=== PATIENT | male | born 1975 | race Caucasian/White ===

== ENCOUNTER 2018-09-06 09:58 | Emergency (ER) | payer MEDICAID ==
[2018-09-06] MEDS ORDERED: IPRATROPIUM/ALBUTEROL (0.5MG/3MG) NEB INH ONE (10:13)
[2018-09-06] MEDS ORDERED: METHYLPREDNISOLONE PF 125MG/VIAL IVP ONE (10:13)
--- NOTE | 2018-09-06 10:14 | Emergency Department Record ---
History of Present Illness - General Chief Complaint: Chest Pain Stated Complaint: CHEST PAIN,SOB Time Seen by Provider: 09/06/18 10:06 Source: Patient, Family Mode of Arrival: Ambulatory Limitations: No limitations - History of Present Illness Initial Comments: 43 yo male presents not feeling well for nearly two weeks. He has had cough, subjective fever, chills, sputum production, body aches. He has has shoulder pain on the left and pains in the chest with breathing and coughing. He lays carpet for a living and has noted pain with work in the left shoulder as it is a physical job with pushing and lifting. The sputum is thick and whitish without blood. He is a smoker. He drinks 2 - several beers a day. He denies any prior lung disease history but has been a termite treater smoker. He did not have a flu shot. It hurts to cough or breath in the chest. No leg swelling. He does not see a PCP. No diarrhea. MD Complaint: Chest pain, Other Onset/Timin -: Week(s) Onset: Other (with cough for the last two weeks) Pain Location: Left chest Pain Radiation: LUE Severity: Moderate Severity scale (1-10): 6 Quality: Aching Consistency: Constant Improves With: Nothing Worsens With: Nothing, Inspiration, Movement Context: Recent illness Anginal Symptoms: Vomiting Other Symptoms: Cough, Fever Treatments Prior to Arrival: None - Related Data Previous Rx's Medication Instructions Recorded Albuterol Sulfate [Proair Hfa] 1 - 2 puff IH .EVERY 4-6 HOURS PRN 09/06/18 #1 inhaler Azithromycin [Zithromax] 250 mg PO DAILY #4 tab 09/06/18 Prednisone [Prednisone 20Mg] 20 mg PO BID #10 tab 09/06/18 Allergies Allergy/AdvReac Type Severity Reaction Status Date / Time No Known Drug Allergies Allergy Verified 09/06/18 10:00 Travel Screening - Travel/Exposure Within Last 30 Days Have you traveled within the last 30 days?: No Review of Systems Constitutional: Reports: Chills, Fever, Malaise, Weakness Eyes: Denies: Eye discharge, Eye pain, Photophobia, Vision change ENT: Reports: Congestion. Denies: Throat pain Respiratory: Reports: Cough, Dyspnea, Wheezes (wheeze throughout both lungs diffusely). Denies: Hemoptysis Cardiovascular: Reports: Chest pain, Dyspnea on exertion. Denies: Edema, Palpitations, Syncope Endocrine: Denies: Fatigue, Polydipsia, Polyuria Gastrointestinal: Reports: Nausea, Vomiting (with coughing episodes). Denies: Abdominal pain, Diarrhea, Hematemesis Genitourinary: Denies: Dysuria, Frequency Musculoskeletal: Reports: Arthralgia, Back pain, Myalgia. Denies: Neck pain Skin: Denies: Bruising, Change in color, Rash Neurological: Denies: Headache, Numbness, Weakness Psychiatric: Denies: Anxiety Hematological/Lymphatic: Denies: Blood Clots, Easy bleeding, Easy bruising, Swollen glands Past Medical History - SOCIAL HISTORY Smoking Status: Current every day smoker Alcohol Use: Heavy Alcohol Use Comment: "COUPLE TO A LOT BBER/DAY" Drug Use: Occasional Drug Use Detail:: Marijuana - RESPIRATORY Hx Respiratory Disorders: No - CARDIOVASCULAR Hx Cardio Disorders: No - NEURO Hx Neuro Disorders: No - GI Hx GI Disorders: No - Hx Genitourinary Disorders: No - ENDOCRINE Hx Endocrine Disorders: No Hx Diabetes: No Hx Thyroid Disease: No - MUSCULOSKELETAL Hx Musculoskeletal Disorders: No - PSYCH Hx Psych Problems: No - HEMATOLOGY/ONCOLOGY Hx Hematology/Oncology Disorders: No Family Medical History Any Significant Family History?: No Physical Exam - General General Appearance: Alert, Oriented x3, Cooperative, No acute distress - Head Head exam: Atraumatic, Normocephalic, Normal inspection - Eye Eye exam: Normal appearance, PERRL. negative: Conjunctival injection, Scleral icterus - ENT ENT exam: Normal exam, Mucous membranes moist Ear exam: Normal external inspection Nasal Exam: Discharge Mouth exam: Normal external inspection Teeth exam: Normal inspection Throat exam: Tonsillar erythema. negative: Tonsillomegaly, Tonsillar exudate, R peritonsillar mass, L peritonsillar mass - Neck Neck exam: Normal inspection, Full ROM. negative: Lymphadenopathy, Tenderness - Respiratory Respiratory exam: Chest wall tenderness, Decreased breath sounds, Prolonged expiratory, Rhonchi, Wheezes (bilateral diffuse wheezing). negative: Normal lung sounds bilaterally, Accessory muscle use, Rales - Cardiovascular Cardiovascular Exam: Regular rate, Normal rhythm, Normal heart sounds Peripheral Pulses: 2+: Radial (R), Radial (L) - GI/Abdominal GI/Abdominal exam: Soft. negative: Tenderness - Rectal Rectal exam: Deferred - exam: Deferred - Extremities Extremities exam: Normal inspection, Tenderness (left anterior shoulder tenderness). negative: Calf tenderness, Pedal edema Image of Full Body: 1 - tenderness anterior shoulder and scapular, no warmth or swelling 2 - tenderness anterior chest, this is the location that hurts with cough/ breathing - Back Back exam: Denies: CVA tenderness (R), CVA tenderness (L) - Neurological Neurological exam: Alert, Oriented X3. negative: Altered, Motor sensory deficit - Psychiatric Psychiatric exam: Normal affect, Normal mood. negative: Agitated, Anxious - Skin Skin exam: Dry, Intact, Normal color, Warm Course Vital Signs 09/06/18 10:02 Temperature 98.0 F Pulse Rate 98 H Respiratory 18 Rate Blood Pressure 155/95 Pulse Ox 98 - Reevaluation(s) Reevaluation #1: EKG 10:02 Sinus rhythm rate 100, intervals normal, axis normal, ST normal. 09/06/18 10:06 09/06/18 10:53 The CBC was reviewed. No acute changes The Troponin is normal The D-Dimer is normal The CMP demonstrated an AG of 25, HCO3 of 21, K of 4.4, CR of 0.8, AST of 121, Glucose of 60 09/06/18 12:01 The chest XR was normal without infiltrate. Normal heart size, No effusion or PVC. 09/06/18 12:07 The patient is eating and starting to feel improved Given his fever and chills with productive cough he will be given PO antibiotics as well. 09/06/18 12:24 The patient is doing much better eating lunch He still has mild wheeze but much improved. RT contacted to teach and dispense an inhaler with spacer 09/06/18 12:32 Repeat vitals reviewed. No significant abnormalities. 09/06/18 13:11 HEART Score is Low risk for discharge IV fluids are finished. He is feeling much better RT has completed teach and dispense. I answered questions, he knows to return if short of breath, not eating, questions with his medications or any concerns 09/06/18 14:32 Medical Decision Making - Lab Data Result diagrams: 09/06/18 10:10 09/06/18 10:10 Disposition Disposition: Discharge Clinical Impression: Shoulder pain, Cough, Atypical chest pain, Bronchitis Disposition: Home, Self-Care Condition: (1) Good Instructions: Acute Bronchitis (ED) Additional Instructions: [facility] for a new family doctor Take the medications as directed the next week Use the inhaler with spacer every 4 hours if wheezing Return immediately if fever, chills, vomiting, not eating, short or breath or any concerns Prescriptions: Albuterol Sulfate [Proair Hfa] 1 - 2 puff IH .EVERY 4-6 HOURS PRN #1 inhaler PRN Reason: Difficulty In Breathing Azithromycin [Zithromax] 250 mg PO DAILY #4 tab Prednisone [Prednisone 20Mg] 20 mg PO BID #10 tab Referrals: ADAN ELLIS [MEDICAL DOCTOR] - Forms: Patient Portal Access Time of Disposition: 13:16 Quality - Quality Measures Quality Measures: N/A - Blood Pressure Screening Does Patient Have Any of the Following: No Blood Pressure Classification: Hypertensive Reading Systolic Measurement: 148 Diastolic Measurement: 68 Screening for High Blood Pressure: < Pre-Hypertensive BP, F/U Documented > [ G8950] Pre-Hypertensive Follow-up Interventions: Referral to alternative/primary care provider.
[2018-09-06 10:23] LABS: BASO % 0.8 % (0-6); GRAN % 65.4 % (47-80); HEMOGLOBIN 16.6 gm/dl (14.0-18.0); LYMPH % 24.9 % (16-45); MEAN CELL VOLUME 96.7 fl (81-97); MEAN CORPUSCULAR HEMOGLOBIN 34.2 pg (27-33); MEAN CORPUSCULAR HGB CONC 35.3 g/dl (32-36); MEAN PLATELET VOLUME 9.4 fl (7.4-10.4); MONO % 7.9 % (0-9); PLATELET COUNT 226 K/uL (130-400); RED BLOOD COUNT 4.86 M/uL (4.40-5.70); RED CELL DISTRIBUTION WIDTH 12.3 % (11.5-14.5); WHITE BLOOD COUNT W/O DIFF 6.2 K/uL (4.2-12.2)
[2018-09-06] MEDS ORDERED: 0.9 % SODIUM CHLORIDE 1,000 ML BAG IV ONE (10:25)
[2018-09-06 10:34] LABS: INFLUENZA A NEGATIVE (NEGATIVE); INFLUENZA B NEGATIVE (NEGATIVE)
[2018-09-06 10:37] LABS: BLOOD UREA NITROGEN 5 mg/dL (6-20); CREATININE 0.8 mg/dL (0.7-1.2); EST GLOMERULAR FILTRATION RATE > 60 mL/min; TOTAL PROTEIN 7.7 g/dL (6.6-8.7)
[2018-09-06 10:39] LABS: GLUCOSE,RANDOM 60 mg/dL (74-109)
[2018-09-06 10:42] LABS: ALB/GLOB RATIO 1.9 (1.1-1.8); ALKALINE PHOSPHATASE 50 U/L (40-129); ALT/SGPT 75 U/L (<41); AST/SGOT 121 U/L (10.0-50.0)
[2018-09-06] MEDS ORDERED: AZITHROMYCIN 500 MG TABLET PO ONE (12:07)
[2018-09-06] MEDS ORDERED: ALBUTEROL HFA 8 GM INHALER INH ONE (12:22)
--- NOTE | 2018-09-08 21:36 | RADIOLOGY REPORT ---
EXAM: CHEST 2 VIEWS HISTORY: FEVER AND COUGH. TECHNIQUE: Two views of the chest. COMPARISON: Acute abdominal series with chest radiograph 10/01/2010. FINDINGS: Cardiac silhouette within normal size limits. Thoracic aortic calcifications. Pulmonary vasculature is nondilated. No focal pulmonary consolidation. No pleural effusion or pneumothorax. IMPRESSION: NO ACUTE LUNG FINDINGS. JOB NUMBER: [id number] MTDD
== END 2018-09-06 13:31 | disposition home or self-care (01) ==
LOC: ER 09:58
DX: J20.9 Acute bronchitis, unspecified (principal); M25.512 Pain in left shoulder; R07.89 Other chest pain; R06.02 Shortness of breath; F17.210 Nicotine dependence, cigarettes, uncomplicated
CPT/HCPCS: 36416; 71046; 80053; 82948; 84484; 85025; 85379; 87400; 93005; 93010; 94640; 94664; 96374; 99284; J2930; J7030

== ENCOUNTER 2019-08-20 09:25 | Emergency (ER) | payer MEDICAID ==
--- NOTE | 2019-08-20 09:36 | Emergency Department Record ---
History of Present Illness - General Chief complaint: Abscess Stated complaint: Abscess Time Seen by Provider: 08/20/19 09:27 Source: Patient Mode of Arrival: Ambulatory Limitations: No limitations - History of Present Illness Initial comments: 43 yo male presents with a recurrent area of pain and swelling on the left buttocks. It is not draining at this point. He states this is the 5th time over several years. No fever. It is lateral to the anus. No fever. MD complaint: Abscess/boil Location: Buttocks Severity: Moderate Quality: Aching Consistency: Constant Improves with: None Worsens with: Palpation Context: Other (recurrent abscess) Treatments Prior to Arrival: None - Related Data Previous Rx's Medication Instructions Recorded Albuterol Sulfate [Proair Hfa] 1 - 2 puff IH .EVERY 4-6 HOURS PRN 09/06/18 #1 inhaler Cephalexin [Keflex] 500 mg PO TID #21 cap 08/20/19 Hydrocodone/APAP 5/325Mg [Mayer 1 each PO Q6H #12 tab 08/20/19 5Mg/325Mg] Sulfamethoxazole/Trimethoprim 1 each PO BID #14 tablet 08/20/19 [Bactrim Ds Tablet] Allergies Allergy/AdvReac Type Severity Reaction Status Date / Time No Known Drug Allergies Allergy Verified 08/20/19 09:36 Review of Systems Constitutional: Denies: Chills, Fever, Malaise, Weakness Eyes: Denies: Eye discharge ENT: Denies: Congestion, Throat pain Respiratory: Denies: Cough, Dyspnea Cardiovascular: Denies: Chest pain Endocrine: Denies: Fatigue Gastrointestinal: Denies: Diarrhea, Nausea, Vomiting Genitourinary: Denies: Dysuria, Frequency, Hematuria Musculoskeletal: Denies: Arthralgia, Back pain, Neck pain Skin: Reports: Other (abscess). Denies: Bruising, Change in color Neurological: Denies: Headache Psychiatric: Denies: Anxiety Hematological/Lymphatic: Denies: Easy bleeding, Easy bruising Past Medical History - SOCIAL HISTORY Smoking Status: Current every day smoker Alcohol Use Comment: "COUPLE TO A LOT BBER/DAY" Drug Use: Occasional Drug Use Detail:: Marijuana - RESPIRATORY Hx Respiratory Disorders: No - CARDIOVASCULAR Hx Cardio Disorders: No - NEURO Hx Neuro Disorders: No - GI Hx GI Disorders: No - Hx Genitourinary Disorders: No - ENDOCRINE Hx Endocrine Disorders: No Hx Diabetes: No Hx Thyroid Disease: No - MUSCULOSKELETAL Hx Musculoskeletal Disorders: No - PSYCH Hx Psych Problems: No - HEMATOLOGY/ONCOLOGY Hx Hematology/Oncology Disorders: No Physical Exam - General General Appearance: Alert, Oriented x3, Cooperative, No acute distress Limitations: No limitations - Head Head exam: Atraumatic - Eye Eye exam: Normal appearance - ENT ENT exam: Normal exam Ear exam: Normal external inspection Nasal Exam: Normal inspection Mouth exam: Normal external inspection - Neck Neck exam: Normal inspection - GI/Abdominal GI/Abdominal exam: Soft. negative: Tenderness - Extremities Extremities exam: Normal inspection - Back Back exam: Denies: Normal inspection Image of Body Front/Back: 1 - abscess with local firmness and erythema appears to be coming to a head. several CM away from the anus and does not involve the anus - Neurological Neurological exam: Alert, Oriented X3 - Psychiatric Psychiatric exam: Normal affect, Normal mood. negative: Agitated, Anxious - Skin Type of lesion: Abscess Course - Reevaluation(s) Reevaluation #1: 08/20/19 09:49 Procedure: Incision and Drainage of Abscess Betadine Prep Lidocaine with Epinephrine 5 ml 11 Blade used to make an 20 mm opening Pus was immediately expressed with odorous drainage Culture was obtained The cavity was irrigated and loculations broken up The cavity was irrigated until clear Packing was placed in the cavity The patient tolerated the procedure well We discussed home care and when to return for a recheck in 3 days Disposition Disposition: Discharge Clinical Impression: Cutaneous abscess of buttock Disposition: Home, Self-Care Condition: (2) Stable Instructions: Abscess Incision and Drainage (ED), Abscess (ED) Additional Instructions: Return in three days to have the wound rechecked and the packing removed Return sooner if worse, fever, uncontrolled pain or any other concerns Take the antibiotics as directed until gone You have been referred to Dr Navarro for the recurrent abscesses. You will get a call to set up an appointment time Prescriptions: Sulfamethoxazole/Trimethoprim [Bactrim Ds Tablet] 1 each PO BID #14 tablet Cephalexin [Keflex] 500 mg PO TID #21 cap Hydrocodone/APAP 5/325Mg [Mayer 5Mg/325Mg] 1 each PO Q6H #12 tab Referrals: Rafael Navarro [DOCTOR OF OSTEOPATH] - [facility] [Provider Group] Forms: Patient Portal Access Time of Disposition: 10:10 Quality - Quality Measures Quality Measures: N/A - Blood Pressure Screening Does Patient Have Any of the Following: No Blood Pressure Classification: Pre-Hypertensive BP Reading Systolic Measurement: 144 Diastolic Measurement: 83 Screening for High Blood Pressure: < Pre-Hypertensive BP, F/U Documented > [G8950] Pre-Hypertensive Follow-up Interventions: Referral to alternative/primary care provider.
[2019-08-20] MEDS: HYDROMORPHONE HCL 2 MG/ML VIAL IVP ONE (09:54)
[2019-08-20] MEDS: 0.9 % SODIUM CHLORIDE 1,000 ML BAG IV ONE (09:54)
[2019-08-20] MEDS: TMP/SMZ 160MG/800MG TAB PO ONE (10:16)
[2019-08-20] MEDS: CEPHALEXIN 500 MG CAPSULE PO STA (10:16)
== END 2019-08-20 10:56 | disposition home or self-care (01) ==
LOC: ER 09:25
DX: L02.31 Cutaneous abscess of buttock (principal); F17.210 Nicotine dependence, cigarettes, uncomplicated
CPT/HCPCS: 10060; 96374; 99284; J7030

== ENCOUNTER 2019-08-22 08:56 | Emergency (ER) | payer MEDICAID ==
--- NOTE | 2019-08-22 09:10 | Emergency Department Record ---
History of Present Illness - General Chief Complaint: Wound, check Stated Complaint: RECHECK ABCESS Time Seen by Provider: 08/22/19 09:02 Source: Patient Mode of arrival: Ambulatory Limitations: No limitations - History of Present Illness Initial Comments: The patient is here for a wound recheck. He had a rectal abscess drained 2 days ago and now needs the packing removed. He denies any problems and states he feels much better. Complaint: Wound re-check Onset/Timin -: Days(s) Initial Visit For: Abscess Returns Today for: Wound recheck Symptoms Since Prior Visit: No new symptoms Associated Symptoms: None Treatments Prior to Arrival: Dressings - Related Data Previous Rx's Medication Instructions Recorded Albuterol Sulfate [Proair Hfa] 1 - 2 puff IH .EVERY 4-6 HOURS PRN 09/06/18 #1 inhaler Cephalexin [Keflex] 500 mg PO TID #21 cap 08/20/19 Hydrocodone/APAP 5/325Mg [Novice 1 each PO Q6H #12 tab 08/20/19 5Mg/325Mg] Sulfamethoxazole/Trimethoprim 1 each PO BID #14 tablet 08/20/19 [Bactrim Ds Tablet] Allergies Allergy/AdvReac Type Severity Reaction Status Date / Time No Known Drug Allergies Allergy Verified 08/22/19 09:05 Travel Screening - Travel/Exposure Within Last 30 Days Have you traveled within the last 30 days?: No - Travel/Exposure Within Last Year Have you traveled outside the [place] in the last year?: No - Additonal Travel Details Have you been exposed to anyone with a communicable illness?: No - Travel Symptoms Symptom Screening: None Review of Systems Constitutional: Denies: Chills, Fever Past Medical History - SOCIAL HISTORY Smoking Status: Current every day smoker Alcohol Use: Occasional Alcohol Use Comment: daily beer Drug Use: None - RESPIRATORY Hx Respiratory Disorders: No Hx COPD: Yes (beginning) - CARDIOVASCULAR Hx Cardio Disorders: No Hx Hypertension: Yes (related to pain) - NEURO Hx Neuro Disorders: No - GI Hx GI Disorders: No - Hx Genitourinary Disorders: No - ENDOCRINE Hx Endocrine Disorders: No Hx Diabetes: No Hx Thyroid Disease: No - MUSCULOSKELETAL Hx Musculoskeletal Disorders: No - PSYCH Hx Psych Problems: No - HEMATOLOGY/ONCOLOGY Hx Hematology/Oncology Disorders: No Family Medical History Any Significant Family History?: Yes Physical Exam - General General Appearance: Alert, Cooperative, No acute distress - Head Head exam: Atraumatic, Normocephalic - GI/Abdominal GI/Abdominal exam: Soft - Rectal Rectal exam: Other (The packing is removed from the L buttock without difficulty. The area is appearing much better per the patient's family. There is no surrounding tenderness.) Course Vital Signs 08/22/19 09:01 Temperature 97.7 F Pulse Rate 104 H Respiratory 18 Rate Blood Pressure 160/103 Pulse Ox 98 - Reevaluation(s) Reevaluation #1: I did stress the need to see Dr. Navarro next week as planned. 08/22/19 09:09 Disposition Disposition: Discharge Clinical Impression: Cutaneous abscess of buttock Disposition: Home, Self-Care Condition: (2) Stable Instructions: Wound Infection (ED) Additional Instructions: Please keep dressed and wash daily and continue the oral Abx's. Return to the ER for any worsening symptoms. Forms: Patient Portal Access Time of Disposition: 09:10 Quality - Quality Measures Quality Measures: N/A - Blood Pressure Screening View Details: Yes Does Patient Have Any of the Following: Active Dx of HTN Blood Pressure Classification: Hypertensive Reading Systolic Measurement: 160 Diastolic Measurement: 103 Screening for High Blood Pressure: Patient Exclusion, Hx of HTN [G9744]
== END 2019-08-22 09:16 | disposition home or self-care (01) ==
LOC: ER 08:56
DX: L02.31 Cutaneous abscess of buttock (principal)
CPT/HCPCS: 99282

== ENCOUNTER 2019-09-09 07:23 | Day surgery (SDC) | payer MEDICAID ==
[~2019-09-09 07:23] MED LIST: ACETAMINOPHEN 1,000 MG/100 ML BTL IVPB ONE; CEFAZOLIN 2 Gram 2 GM/50 ML BAG IVPB ONE
[2019-09-09] MEDS ORDERED: DIBUCAINE 30 GM TUBE TOP ONE (07:24)
[2019-09-09] MEDS ORDERED: MIDAZOLAM HCL 2MG/2ML VIAL IV ONE (07:24)
[2019-09-09] MEDS ORDERED: ROCURONIUM BROMIDE 50MG/5ML VIAL IV ONE (07:24)
[2019-09-09] MEDS ORDERED: ONDANSETRON HCL IV 4 MG/2 ML VIAL IVP ONE (07:24)
[2019-09-09] MEDS ORDERED: LIDOCAINE 2% MDV (20MG/ML) 20ML VIAL IV ONE (07:24)
[2019-09-09] MEDS ORDERED: KETOROLAC 30 MG/ML VIAL IVP ONE (07:24)
[2019-09-09] MEDS ORDERED: FENTANYL PF 100MCG/2ML VIAL IV ONE (07:24)
[2019-09-09] MEDS ORDERED: SEVOFLURANE 250 ML INH ONE (07:24)
[2019-09-09] MEDS ORDERED: PROPOFOL 10 MG/ML VIAL IV ONE (07:24)
[2019-09-09] MEDS ORDERED: SUCCINYLCHOLINE 20 MG/ML 10ML IVP ONE (07:24)
[2019-09-09] MEDS ORDERED: RINGERS SOLUTION,LACTATED 1,000 ML IV ONE (08:05)
[2019-09-09] MEDS ORDERED: BUPIVACAINE 0.25% W/EPI MPF 30ML VIAL SQ ONE (10:10)
--- NOTE | 2019-09-16 08:31 | Operative Note ---
DATE OF SURGERY: 09/09/2019 SURGEON: Rafael Navarro DO PREOPERATIVE DIAGNOSIS: Recurrent perianal abscess, anal fistula. POSTOPERATIVE DIAGNOSIS: Recurrent perianal abscess, anal fistula. OPERATION: Anal fistulotomy. INDICATION: The patient is a 44-year-old male who has had 4 or 5 perianal abscesses which required I&D over the last 18 months. On exam, it looked like an external opening suspicious of a fistula. We did discuss rectal exam under anesthesia with a potential fistulotomy. Risks, benefits, and alternatives were discussed. Risks include bleeding, infection, recurrence, incontinence. He understood this fully. Thereafter, consent was signed and questions answered. PROCEDURE: The patient was taken to the operating room and placed in a supine position. General anesthesia was administered per the department of anesthesia. The patient was rotated into prone jackknife position. Buttocks were taped apart. His perianal region was prepped and draped in sterile fashion. Adequate timeout was performed. He did receive preoperative antibiotic. At this time, a 4-quadrant anal block was done. [place] speculum was placed. External openings identified. A malleable probe was placed through the opening and this came out at the level of the dentate line. This was consistent with a non- transsphincteric fistula. Formal fistulotomy was done. The patient had a granulation base through the fistulous tract which was obvious. Each side was then marsupialized with 2-0 Vicryl in running locking fashion. Other exam was done. There was really no other pathology noted. A gel foam was placed. The patient tolerated procedure well. [facility]
== END 2019-09-09 11:15 | disposition home or self-care (01) ==
LOC: SUR 07:23
PROVIDERS: ATTEND Surgery
DX: K60.3 Anal fistula (principal); K61.0 Anal abscess; J44.9 Chronic obstructive pulmonary disease, unspecified; E87.1 Hypo-osmolality and hyponatremia; R55 Syncope and collapse; K91.840 Postprocedural hemorrhage of a digestive system organ or structure following a digestive system procedure; I10 Essential (primary) hypertension; F17.210 Nicotine dependence, cigarettes, uncomplicated
CPT/HCPCS: 46270; 00902; 99284 ×2; 85025; 80048; G0480; J1885; J2405; J3010; J0690; 80320; J0330; J7120

== ENCOUNTER 2019-09-09 14:32 | Emergency (ER) | payer MEDICAID ==
[2019-09-09 15:43] LABS: ABSOLUTE NEUTROPHIL COUNT 6.37; BASO % 0.2 % (0-6); EOS % 0.8 % (0-6); GRAN % 72.2 % (47-80); HEMATOCRIT 40.3 % (42.0-52.0); HEMOGLOBIN 13.6 gm/dl (14.0-18.0); LYMPH % 13.1 % (16-45); MEAN CELL VOLUME 99.8 fl (81-97); MEAN CORPUSCULAR HGB CONC 33.7 g/dl (32-36); MEAN PLATELET VOLUME 9.6 fl (7.4-10.4); MONO % 13.7 % (0-9); PLATELET COUNT 194 K/uL (130-400); RED BLOOD COUNT 4.04 M/uL (4.40-5.70); RED CELL DISTRIBUTION WIDTH 12.4 % (11.5-14.5); WHITE BLOOD COUNT W/O DIFF 8.8 K/uL (4.2-12.2)
[2019-09-09 15:44] LABS: MEAN CORPUSCULAR HEMOGLOBIN 33.6 pg (27-33)
[2019-09-09 15:52] LABS: BLOOD UREA NITROGEN 5 mg/dL (6-20); CREATININE 0.6 mg/dL (0.7-1.2); EST GLOMERULAR FILTRATION RATE > 60 mL/min
[2019-09-09 15:54] LABS: ALCOHOL 0.052 g/dL (0-0.010)
[2019-09-09 15:55] LABS: GLUCOSE,RANDOM 80 mg/dL (74-109)
--- NOTE | 2019-09-09 16:39 | Emergency Department Record ---
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 he went home and as he walked up the walk he coughed and felt a pop in the surgical area and had a gush of blood. he went inside and had 2 beers as he sat on a stool and then had a syncopal event. he feels better now. MD Complaint: Loss of consciousness Onset/Timin -: Minutes(s) Prodromal Symptoms: Lightheaded, Other Current Symptoms: None, Back to baseline Treatments Prior to Arrival: None - [place] Coma Scale Eye Response: (4) Open spontaneously Motor Response: (6) Obeys commands Verbal Response: (5) Oriented [place] Total: 15 - Symptoms of Stroke Symptoms of stroke: Dizziness - Related Data Previous Rx's Medication Instructions Recorded Albuterol Sulfate [Proair Hfa] 1 - 2 puff IH .EVERY 4-6 HOURS PRN 09/06/18 #1 inhaler Cephalexin [Keflex] 500 mg PO TID #21 cap 08/20/19 Allergies Allergy/AdvReac Type Severity Reaction Status Date / Time No Known Drug Allergies Allergy Verified 09/09/19 14:49 Travel Screening - Travel/Exposure Within Last 30 Days Have you traveled within the last 30 days?: No - Travel/Exposure Within Last Year Have you traveled outside the [place] in the last year?: No - Additonal Travel Details Have you been exposed to anyone with a communicable illness?: No - Travel Symptoms Symptom Screening: None Review of Systems Reviewed: No additional complaints except as noted below Constitutional: Reports: As per HPI, Weakness. Denies: Chills, Fever, Malaise, Night sweats, Weight change Eyes: Reports: As per HPI. Denies: Eye discharge, Eye pain, Photophobia, Vision change ENT: Reports: As per HPI. Denies: Congestion, Dental pain, Ear pain, Epistaxis, Hearing loss, Throat pain Respiratory: Reports: As per HPI. Denies: Cough, Dyspnea, Hemoptysis, Stridor, Wheezes Cardiovascular: Reports: As per HPI. Denies: Arrhythmia, Chest pain, Dyspnea on exertion, Edema, Murmurs, Orthopnea, Palpitations, Paroxysmal nocturnal dyspnea, Rheumatic Fever, Syncope Endocrine: Reports: As per HPI. Denies: Fatigue, Heat or cold intolerance, Polydipsia, Polyuria Gastrointestinal: Reports: As per HPI. Denies: Abdominal pain, Constipation, Diarrhea, Hematemesis, Hematochezia, Melena, Nausea, Vomiting Genitourinary: Reports: As per HPI. Denies: Dysuria, Frequency, Hematuria, Incontinence, Retention, Testicular pain, Testicular mass, Urgency Musculoskeletal: Reports: As per HPI. Denies: Arthralgia, Back pain, Gout, Joint swelling, Myalgia, Neck pain Skin: Reports: As per HPI. Denies: Bruising, Change in color, Change in hair/nails, Lesions, Pruritus, Rash Neurological: Reports: As per HPI. Denies: Abnormal gait, Confusion, Headache, Numbness, Paresthesias, Seizure, Tingling, Tremors, Vertigo, Weakness Psychiatric: Reports: As per HPI. Denies: Anxiety, Auditory hallucinations, Depression, Homicidal thoughts, Suicidal thoughts, Visual hallucinations Hematological/Lymphatic: Reports: As per HPI. Denies: Anemia, Blood Clots, Easy bleeding, Easy bruising, Swollen glands Past Medical History - SOCIAL HISTORY Smoking Status: Current every day smoker Alcohol Use: Heavy Drug Use: Heavy Drug Use Detail:: Marijuana - RESPIRATORY Hx Respiratory Disorders: No Hx COPD: Yes (beginning) - CARDIOVASCULAR Hx Cardio Disorders: No Hx Hypertension: Yes (related to pain) - NEURO Hx Neuro Disorders: No - GI Hx GI Disorders: No Hx Rectal Bleeding: Yes (HX OF) Comment:: ANAL ABCESS - Hx Genitourinary Disorders: No - ENDOCRINE Hx Endocrine Disorders: No Hx Diabetes: No Hx Thyroid Disease: No - MUSCULOSKELETAL Hx Musculoskeletal Disorders: No Hx Arthritis: Yes (NOTHING DX'D) - PSYCH Hx Psych Problems: No - HEMATOLOGY/ONCOLOGY Hx Hematology/Oncology Disorders: No Family Medical History Any Significant Family History?: No Family Hx Comment (NOT TO BE USED IN PLACE OF ITEMS BELOW): NO MED HX ON FATHER HE WAS MURDERED WHEN THE PT WAS 10 Hx Heart Disease: Mother Hx Seizures: Mother Physical Exam - General General Appearance: Alert, Oriented x3, Cooperative, No acute distress - Head Head exam: Normal inspection - Eye Eye exam: Normal appearance, PERRL, EOMI Pupils: Normal accommodation - ENT ENT exam: Normal exam, Mucous membranes moist, Normal external ear exam, Normal orophraynx Ear exam: Normal external inspection. negative: External canal tenderness Nasal Exam: Normal inspection. negative: Discharge, Sinus tenderness Mouth exam: Normal external inspection, Tongue normal Teeth exam: Normal inspection. negative: Dental caries Throat exam: Normal inspection. negative: Tonsillar erythema, Tonsillar exudate - Neck Neck exam: Normal inspection, Full ROM. negative: Tenderness - Respiratory Respiratory exam: Normal lung sounds bilaterally. negative: Respiratory distress - Cardiovascular Cardiovascular Exam: Regular rate, Normal rhythm, Normal heart sounds - GI/Abdominal GI/Abdominal exam: Soft, Normal bowel sounds. negative: Tenderness - Rectal Rectal exam: Other (rectal bleeding mild to moderate) - exam: Deferred - Extremities Extremities exam: Normal inspection, Full ROM, Normal capillary refill. negative: Tenderness - Back Back exam: Reports: Normal inspection, Full ROM. Denies: Muscle spasm, Rash noted, Tenderness - Neurological Neurological exam: Alert, Normal gait, Oriented X3, Reflexes normal - Psychiatric Psychiatric exam: Normal affect, Normal mood - Skin Skin exam: Dry, Intact, Normal color, Warm Course Vital Signs 09/09/19 14:37 Temperature 97.5 F L Pulse Rate 72 Respiratory 16 Rate Blood Pressure 155/89 Pulse Ox 98 - Reevaluation(s) Reevaluation #1: 09/09/19 16:41 pt did well entire stay. orths are neg. bleeding has slowed way down. Reevaluation #2: 09/09/19 17:01 d/w dr will. pt will get repeat NA drawn tomorrow and dr will will follow Medical Decision Making - Lab Data Result diagrams: 09/09/19 15:35 09/09/19 15:35 Lab Results 09/09/19 09/09/19 Range/Units 15:35 15:35 WBC 8.8 (4.2-12.2) K/uL RBC 4.04 L (4.40-5.70) M/uL Hgb 13.6 L (14.0-18.0) gm/dl Hct 40.3 L (42.0-52.0) % MCV 99.8 H (81-97) fl MCH 33.6 H (27-33) pg MCHC 33.7 (32-36) g/dl RDW 12.4 (11.5-14.5) % Plt Count 194 (130-400) K/uL MPV 9.6 (7.4-10.4) fl Gran % 72.2 (47-80) % Lymphocytes % 13.1 L (16-45) % Monocytes % 13.7 H (0-9) % Eosinophils % 0.8 (0-6) % Basophils % 0.2 (0-6) % Absolute Neutrophils 6.37 Sodium 128 L (136-145) mmol/L Potassium 3.7 (3.4-4.5) mmol/L Chloride 89 L (98-107) mmol/L Carbon Dioxide 23.0 (22-29) mmol/L Anion Gap 16.0 (7-16) BUN 5 L (6-20) mg/dL Creatinine 0.6 L (0.7-1.2) mg/dL Estimated GFR > 60 mL/min Random Glucose 80 (74-109) mg/dL Calcium 8.9 (8.6-10.0) mg/dL Ethyl Alcohol 0.052 H (0-0.010) g/dL Disposition Disposition: Discharge Clinical Impression: Hyponatremia Syncope Qualifiers: Syncope type: vasovagal syncope Qualified Code(s): R55 - Syncope and collapse Post-op bleeding Qualifiers: Surgical complication system/body Area: musculoskeletal system Procedure type: non-musculoskeletal Qualified Code(s): M96.831 - Postprocedural hemorrhage of a musculoskeletal structure following other procedure Disposition: Home, Self-Care Condition: (1) Good Instructions: Syncope (ED), Postoperative Bleeding (ED), Hyponatremia (ED) Additional Instructions: have lab drawn tomorrow. follow up with dr will. no alcohol till cleared by dr will. rest. return sooner if worse Forms: Patient Portal Access Quality - Quality Measures Quality Measures: N/A - Blood Pressure Screening Does Patient Have Any of the Following: No Blood Pressure Classification: Pre-Hypertensive BP Reading Systolic Measurement: 155 Diastolic Measurement: 89 Screening for High Blood Pressure: < Pre-Hypertensive BP, F/U Documented > [G8950] Pre-Hypertensive Follow-up Interventions: Follow-up with rescreen every year.
== END 2019-09-09 17:20 | disposition home or self-care (01) ==
LOC: ER 14:32
DX: E87.1 Hypo-osmolality and hyponatremia (principal); R55 Syncope and collapse; K91.840 Postprocedural hemorrhage of a digestive system organ or structure following a digestive system procedure; I10 Essential (primary) hypertension; J44.9 Chronic obstructive pulmonary disease, unspecified; F17.210 Nicotine dependence, cigarettes, uncomplicated
CPT/HCPCS: 80048; 80320; 85025